=== PATIENT | male | born 1970 | race Caucasian/White ===

== ENCOUNTER 2024-04-25 10:29 | Emergency (ER) | payer MEDICAID, OTHER ==
[~2024-04-25] VITALS: Ht 165.1 cm; Wt 72.7 kg
[~2024-04-25 10:29] MED LIST: ASPI81 PO; FURO20TA5 PO
[2024-04-25] MEDS ORDERED: METF-1185 PO (10:39)
[2024-04-25] MEDS ORDERED: CAPT12.55 PO (10:39)
[2024-04-25] MEDS ORDERED: LISI-893 PO (10:46)
[2024-04-25] MEDS ORDERED: ATOR40TA28 PO (10:46)
[2024-04-25] MEDS ORDERED: CARV6.25 PO (10:46)
[2024-04-25] MEDS ORDERED: DULA0.75 SQ (10:46)
[2024-04-25] MEDS ORDERED: EZET10TA57 PO (10:46)
[2024-04-25 11:45] VITALS: BP 153/78; PULSE 75; RESP 18; TEMP 97.5; O2SAT 98
[2024-04-25] MEDS ORDERED: CYCL-448 PO (12:06)
[2024-04-25] MEDS ORDERED: IBUP-1492 PO (12:06)
== END 2024-04-25 12:24 | disposition home or self-care (01) ==
LOC: EMS 10:31
DX: M79.661 Pain in right lower leg (principal); E11.9 Type 2 diabetes mellitus without complications; I10 Essential (primary) hypertension; Z98.890 Other specified postprocedural states; Z79.82 Long term (current) use of aspirin; Z79.84 Long term (current) use of oral hypoglycemic drugs; Z79.899 Other long term (current) drug therapy
CPT/HCPCS: 85379; 93971; 99284